=== PATIENT | male | born 1970 | race Caucasian/White ===

== ENCOUNTER → 2020-03-18 | Outpatient (CLI) | payer BC, OTHER ==
--- NOTE | 2020-03-18 15:36 | REP ---
RIGHT KNEE SERIES, FIVE VIEWS: Five views of the right knee performed. There is no evidence of acute fracture or dislocation. Joint spaces appear unremarkable. No bone lesion is seen. IMPRESSION: Negative right knee series. Further evaluation may be made with MRI if clinically indicated. Electronically Signed by Cj Rodriguez MD 03/21/2020 11:43 P
== END ==
LOC: M WUC 12:40
PROVIDERS: ATTEND Physician Assistant
DX: M25.561 Pain in right knee (principal)